=== PATIENT | male | born 1940 | race Caucasian/White ===

== ENCOUNTER → 2017-01-14 | Outpatient (CLI) | payer OTHER ==
[~2017-01-14] MED LIST: AMLO10CA PO; CRD2 PO
[2017-01-14 12:51] LABS: BASO % 0.3 %; BASO ABS # 0.02 K/uL (0-0.2); COMPLETE YES; EOS % 4.3 %; HEMATOCRIT 45.3 % (42-52); IG% 0.2 %; LYMPH % 24.7 %; LYMPH ABS # 1.44 K/uL (1.2-3.4); MEAN CELL VOLUME 89.7 fL (80-100); MEAN CORPUSCULAR HEMOGLOBIN 29.9 pg (25-34); MEAN CORPUSCULAR HGB CONC 33.3 g/dl (32-36); MEAN PLATELET VOLUME 11.4 fL (7.4-10.4); MONO % 12.2 %; NEUT % 58.3 %; PLATELET COUNT 219 K/uL (130-400); RED BLOOD COUNT 5.05 M/uL (4.7-6.1); WHITE BLOOD COUNT 5.82 K/uL (4.8-10.8)
[2017-01-14 13:16] LABS: ESTIMATED AVERAGE GLUCOSE 117 mg/dl; HA1C FLAG Normal (Normal)
[2017-01-14 13:59] LABS: ALB/GLOB RATIO 1.2 (0.9-2); ALKALINE PHOSPHATASE 71 U/L (45-117); ALT/SGPT 31 U/L (12-78); AST/SGOT 20 U/L (15-37); BLOOD UREA NITROGEN 25 mg/dl (7-18); BUN/CREATININE RATIO 23.1 (10-20); CALCIUM 8.4 mg/dl (8.5-10.1); CARBON DIOXIDE 29 mmol/L (21-32); CHLORIDE 108 mmol/L (98-107); CHOLESTEROL 154 mg/dl (0-200); CHOLESTEROL/HDL RATIO 4.1; GLUCOSE 84 mg/dl (70-99); HDL CHOLESTEROL 38 mg/dl; LDL CHOLESTEROL CALCULATED 96 mg/dl; POTASSIUM 3.8 mmol/L (3.5-5.1); SODIUM 141 mmol/L (136-145); TRIGLYCERIDES 100 mg/dl (0-150); VERY LOW DENSITY LIPOPROT CALC 20 mg/dl
== END | disposition home or self-care (01) ==
LOC: C.LABPBG 07:42
PROVIDERS: ATTEND Family Medicine
DX: Z00.00 Encounter for general adult medical examination without abnormal findings (principal); I25.10 Atherosclerotic heart disease of native coronary artery without angina pectoris; E78.5 Hyperlipidemia, unspecified; I10 Essential (primary) hypertension; R73.03 Prediabetes

== ENCOUNTER → 2017-09-14 | Outpatient (CLI) | payer OTHER ==
[2017-09-14 13:55] LABS: HEMOGLOBIN 15.9 g/dL (14.0-18.0); MEAN CELL VOLUME 88.3 fL (80-100); MEAN CORPUSCULAR HEMOGLOBIN 30.5 pg (25-34); MEAN CORPUSCULAR HGB CONC 34.6 g/dl (32-36); MEAN PLATELET VOLUME 10.5 fL (7.4-10.4); PLATELET COUNT 210 K/uL (130-400); RED CELL DISTRIBUTION WIDTH CV 14.7 % (11.5-14.5); RED CELL DISTRIBUTION WIDTH SD 47.5 fL (36.4-46.3); WHITE BLOOD COUNT 6.07 K/uL (4.8-10.8)
[2017-09-14 14:25] LABS: HEMOGLOBIN A1C 5.7 % (4.5-5.6)
[2017-09-14 14:36] LABS: ALBUMIN 3.7 gm/dl (3.4-5.0); ALT/SGPT 27 U/L (12-78); AST/SGOT 17 U/L (15-37); BLOOD UREA NITROGEN 19 mg/dl (7-18); CALCIUM 8.6 mg/dl (8.5-10.1); CARBON DIOXIDE 28 mmol/L (21-32); CHOLESTEROL 125 mg/dl (0-200); CREATININE 1.03 mg/dl (0.60-1.40); GLUCOSE 86 mg/dl (70-99); POTASSIUM 3.6 mmol/L (3.5-5.1); SODIUM 140 mmol/L (136-145)
[2017-09-14 14:39] LABS: ALKALINE PHOSPHATASE 69 U/L (45-117); LDL CHOLESTEROL CALCULATED 66 mg/dl; TOTAL PROTEIN 6.7 gm/dl (6.4-8.2)
== END | disposition home or self-care (01) ==
LOC: C.LABPBG 07:31
PROVIDERS: ATTEND Family Medicine
DX: I25.10 Atherosclerotic heart disease of native coronary artery without angina pectoris (principal); E78.5 Hyperlipidemia, unspecified; I10 Essential (primary) hypertension; R73.03 Prediabetes

== ENCOUNTER 2024-12-31 19:22 | Inpatient (IN) ==
[2024-12-31 19:55] LABS: Hematocrit (blood only) 46.9 % (42.0-52.0); Hemoglobin 15.8 g/dl (14.0-18.0); Immature Granulocytes # (auto) 0.01 K/uL (0.01-0.20); Immature Granulocytes % (auto) 0.1 %; Mean Corpuscular Hemoglobin 29.7 pg (25.0-34.0); Mean Corpuscular Volume 88.2 fL (80.0-100.0); Platelet Count 234 K/uL (130-400); RDW Standard Deviation 48.0 fL (36.4-46.3); Red Blood Count 5.32 M/uL (4.70-6.10); White Blood Count 7.29 K/ul (4.8-10.8)
--- NOTE | 2024-12-31 20:00 | XRay Report ---
EXAM: X-ray chest one-view portable CLINICAL HISTORY: Altered mental status PRIORS: None TECHNIQUE: Direct AP chest FINDINGS: The chest lung volumes are moderately diminished. Allowing for this, subtle heterogeneous opacification in the left lower lobe is noted. No confluent airspace consolidation, effusion or congestive changes. Heart size is normal. No pneumothorax. Trachea is patent. Osseous structures demonstrate no acute abnormality. No radiopaque foreign body. IMPRESSION: Allowing for diminished lung volumes, subtle left lower lobe opacification is present, which could suggest pneumonia in the setting of altered mental status. ACT 112: Positive. There are findings on this examination that require communication between the performing entity and the patient following Patient Test Result Information Act ([place] ACT 112) guidelines. Electronically signed by Sharon Hanna 12-31-2024 7:56 PM
[2024-12-31 20:11] LABS: Base Excess VBG 7.2 mEq/L; HCO3 VBG 33 mmol/L; Oxygen Saturation VBG < 60.0 %; PCO2 VBG 50 mmHg (38-50); PO2 VBG 23 mmHg; pH VBG 7.43 (7.36-7.41)
[2024-12-31 20:13] LABS: Alanine Aminotransferase 20 U/L (7-52); Alkaline Phosphatase 91 U/L (34-104); Anion Gap 8 (3-11); Bilirubin,Total 0.5 mg/dl (0.2-1.0); Blood Urea Nitrogen 17 mg/dl (6-23); Calcium 9.6 mg/dl (8.6-10.3); Carbon Dioxide 28 mmol/L (21-32); Chloride 103 mmol/L (98-107); Creatine Kinase 176 U/L (30-223); Glucose 114 mg/dl (70-99(Fasting)); Lipase 30 U/L (11-82); Magnesium 2.3 mg/dl (1.7-2.4); Potassium 3.4 mmol/L (3.5-5.1); Sodium 139 mmol/L (136-145); Total Protein 7.2 gm/dl (6.0-8.3)
[2024-12-31] MEDS: SODIUM CHLORIDE 0.9% 500 ML IV ONE (20:15)
[2024-12-31 20:26] LABS: INR 0.9 (0.9-1.1); Partial Thromboplastin Time 24 Seconds (21-31); Prothrombin Time 10.2 Seconds (9.0-12.0)
[2024-12-31 20:27] LABS: Appearance Urine Clear (Clear); Glucose Urine UA Negative (Negative)
[2024-12-31] MEDS: cefTRIAXone SODIUM 2,000 MG/50 ML BAG IV STA (20:52)
--- NOTE | 2024-12-31 21:03 | CT Scan Report ---
Exam(s): CT HEAD Without Contrast EXAM: CT Head Without Intravenous Contrast CLINICAL HISTORY: Reason for exam: ams. TECHNIQUE: Axial computed tomography images of the head/brain without intravenous contrast. CTDI is 37.12 mGy and DLP is 624.41 mGy-cm. Automated exposure control was utilized for the study. A dose lowering technique was utilized adhering to the principles of ALARA. COMPARISON: 05/28/2008 FINDINGS: Brain: Mild cerebral atrophy and patchy periventricular white matter low density consistent with chronic small vessel disease and/or senescent changes. There are old lacunar infarcts in the basal ganglia bilaterally. No acute large vessel infarct or intracranial hemorrhage is seen. Ventricles: Unremarkable. No ventriculomegaly. Bones/joints: Old right frontal natasha hole, unchanged. No acute fracture. Soft tissues: Unremarkable. Sinuses: Unremarkable as visualized. No acute sinusitis. Mastoid air cells: Unremarkable as visualized. No mastoid effusion. IMPRESSION: Mild cerebral atrophy and patchy periventricular white matter low density consistent with chronic small vessel disease and/or senescent changes. There are old lacunar infarcts in the basal ganglia bilaterally. No acute large vessel infarct or intracranial hemorrhage is seen. Electronically signed by: Tony Haynes MD 12/31/24 21:02 PM
--- NOTE | 2024-12-31 21:36 | History & Physical Report ---
Date of Service December 31, 2024 Assessment & Plan (1) Presence of bare metal stent in left circumflex coronary artery: (2) Coronary artery disease: (3) History of subdural hematoma: (4) Hypertension: (5) Dyslipidemia: (6) Acute metabolic encephalopathy: (7) Acute hypoxemic respiratory failure: (8) CAP (community acquired pneumonia): Plan This is an 84 year old male with a PMH of CAD s/p stenting, HTN, HLD, hx of subdural hematoma - coming in with altered mental status and weakness. Acute Metabolic Encephalopathy Acute Hypoxemic Respiratory Failure Community Acquired Pneumonia - patient coming in with confusion, weakness. On arrival here, oriented x3, but intermittently confused and weak - saturating <88%on room air, requiring 2L of O2 - CXR done and suggestive of left lower lobe opacification - Rocephin + Azithromycin started in the ED and will continue - gentle IV hydration CAD - hx of stenting x2 in 2007 - cont Plavix + statin HTN - cont amlodipine - cont triamterene/HCTZ DVT ppx - subq Lovenox History of Present Illness Chief Complaint: Confusion Primary Care Provider: Yani Flores, This is an 84 year old male with a PMH of CAD s/p stenting, HTN, HLD, hx of subdural hematoma - coming in with altered mental status and weakness. This began suddenly prior to arrival; states he was just not feeling right. On arrival here, he is not confused per orientation questions, but just felt off and weak. Head CT was done in the ED and negative for acute process. CXR was done and suggestive of left lower lobe opacification. In the ER, patient requiring 2L of O2 via NC due to hypoxemia. Patient was started on Rocephin and Azithromycin in the ER. Allergies Allergy/AdvReac Type Severity Reaction Status Date / Time spironolactone Allergy Unknown Unknown Verified 12/31/24 20:24 JENNY Inhibitors AdvReac Intermediate Cough Verified 12/31/24 20:24 atorvastatin AdvReac Intermediate Myalgia Verified 12/31/24 20:24 rosuvastatin [From Crestor] AdvReac Intermediate Myalgia Verified 12/31/24 20:24 Home Medications Medication Instructions Recorded Confirmed Type compressor, for nebulizer #1 ea 08/27/22 11/10/24 Rx albuterol sulfate 1.25 mg/3 mL 1.25 mg (3 mL) inhalation QID PRN 09/15/22 12/31/24 Rx solution for nebulization shortness of breath or wheezing #75 mL acetaminophen 500 mg tablet 500 mg PO DIRECTED PRN Pain 09/28/22 12/31/24 History (Tylenol Extra Strength) albuterol sulfate 90 mcg/actuation 2 puff inhalation Q6H PRN 03/18/23 12/31/24 Rx aerosol inhaler shortness of breath or wheezing #8.5 grams fluticasone propionate 50 2 spray intranasal DAILY PRN nasal 06/03/23 12/31/24 Rx mcg/actuation nasal congestion #16 grams spray,suspension clopidogrel 75 mg tablet 75 mg PO DAILY #90 tabs 12/27/23 12/31/24 Rx simvastatin 40 mg tablet 40 mg PO QPM #90 tabs 03/28/24 12/31/24 Rx fluticasone fur. 200 mcg-umeclid 1 inh inhalation DAILY PRN cough 08/08/24 12/31/24 Rx 62.5 mcg-vilant 25 mcg and wheezing #60 ea inhalat.powder (Trelegy Ellipta) sildenafil 100 mg tablet 100 mg PO DAILY PRN sexual 09/29/24 12/31/24 Rx activity #10 tabs amlodipine 10 mg tablet 10 mg PO QAM #90 tabs 10/04/24 12/31/24 Rx losartan 100 mg tablet 100 mg PO QAM #90 tabs 10/04/24 12/31/24 Rx metoprolol tartrate 25 mg tablet 12.5 mg (1/2 x 25 mg) PO QAM #45 10/04/24 12/31/24 Rx tabs triamterene 37.5 1 cap PO QAM #90 caps 10/04/24 12/31/24 Rx mg-hydrochlorothiazide 25 mg capsule potassium chloride 20 mEq 20 meq PO QAM #90 tabs 11/08/24 12/31/24 Rx tablet,extended release fluorouracil 5 % topical cream 1 applic topical DIRECTED PRN 11/10/24 12/31/24 History Skin Irritation Past Med/Surg History Problem List (Updated 12/31/24 @ 22:09 by Payal Gallardo DO) CAP (community acquired pneumonia) Acute hypoxemic respiratory failure Acute metabolic encephalopathy Squamous cell skin cancer, face Venous reflux Presence of bare metal stent in left circumflex coronary artery Antiplatelet or antithrombotic long-term use Left hydrocele Allergic rhinitis Coronary artery disease s/p BMS x2 (2007), Follows with Dr. Rodriguez Cyst of kidney, acquired Dyslipidemia History of subdural hematoma 2006 s/p natasha holes/drainage Hypertension Inhibited sexual excitement Prediabetes Myocardial infarct, old 2007 Medical History Bronchospasm Surgical History H/O right inguinal hernia repair (03/19/22) History of hydrocelectomy (05/06/21) S/P left inguinal hernia repair (05/06/21) History of colonoscopy S/P coronary artery stent placement History of natasha hole surgery S/P hernia repair S/P cataract surgery S/P appendectomy Family History Brother Coronary heart disease Prostate cancer Stroke Hypertension Mother Coronary heart disease Hypertension Father Coronary heart disease Diabetes Hypertension Brother Prostate cancer Hypertension Brother Stomach cancer Denies family history of Ovarian cancer Myocardial infarction Breast cancer Lung cancer Colorectal cancer Social History Smoking Status: Never smoker Second Hand Exposure: No; Do You Dip or Chew Tobacco: No; Hx Alcohol Use: Yes Alcohol type: beer Alcohol Intake Frequency: Monthly or Less Hx Substance Use: No Preferred Language: German Communication Ability: Effective Visual Impairment: No Limitations Hearing Ability: Normal Operations Executive Required: No Beliefs That Will Affect Care: None marital status: Current Living Situation: Spouse current occupational status: retired How many Children do You have: 4 Feels Safe at Home: Yes Childhood Exposure to Second-Hand Smoke: No Diet: regular Diet Comment: Regular caffeine: Yes (coffee) during the past year weight has: remained stable Dental Care, Regularly: Yes Physical Activity Frequency: Daily Physical Activity Frequency Comment: walking Seatbelt Use: always Sunscreen Use: Yes Assistive Devices: None Review of Systems Review of Systems: Constitutional: No Weight Change, No Fever, No Chills, No Night Sweats, No Fatigue, No Malaise ENT/Mouth: No Hearing Changes, No Ear Pain, No Nasal Congestion, No Sinus Pain, No Hoarseness, No sore throat, No Rhinorrhea, No Swallowing Difficulty Eyes: No Eye Pain, No Swelling, No Redness, No Foreign Body, No Discharge, No Vision Changes Cardiovascular: No Chest Pain, No SOB, No PND, No Dyspnea on Exertion, No Orthopnea, No Claudication, No Edema, No Palpitations Respiratory: No Cough, No Sputum, No Wheezing, No Smoke Exposure, No Dyspnea Gastrointestinal: No Nausea, No Vomiting, No Diarrhea, No Constipation, No Pain, No Heartburn, No Anorexia, No Dysphagia, No Hematochezia, No Melena, No Flatulence, No Jaundice Genitourinary: No Dysmenorrhea, No DUB, No Dyspareunia, No Dysuria, No Urinary Frequency, No Hematuria, No Urinary Incontinence, No Urgency, No Flank Pain, No Urinary Flow Changes, No Hesitancy Musculoskeletal: No Arthralgias, No Myalgias, No Joint Swelling, No Joint Stiffness, No Back Pain, No Neck Pain, No Injury History Skin: No Skin Lesions, No Pruritis, No Hair Changes, No Breast/Skin Changes, No Nipple Discharge Neuro: +weakness No Numbness, No Paresthesias, No Loss of Consciousness, No Syncope, No Dizziness, No Headache, No Coordination Changes, No Recent Falls . +intermittent confusion Psych: No Anxiety/Panic, No Depression, No Insomnia, No Personality Changes, No Delusions, No Rumination, No SI/HI/AH/VH, No Social Issues, No Memory Changes, No Violence/Abuse Hx., No Eating Concerns Heme/Lymph: No Bruising, No Bleeding, No Transfusions History, No Lymphadenopathy Endocrine: No Polyuria, No Polydipsia, No Temperature Intolerance Physical Exam Physical Exam: VITALS: Reviewed. WEIGHT/BMI reviewed. GEN: Healthy appearing, well-developed, NAD. PSYCH: Good Judgment. AOx3. Normal memory, mood, and affect. HEENT -Head: NC/AT; -Eyes: PERRL, EOMI. No discharge or redn ess; -Ears: External ears are normal. Normal TMs. -Nose: Normal nares. -Mouth and throat: MMM. Normal gums, muc sixto, palate,. Good dentition. NECK: Supple, with no masses. CV: RRR, no m/r/g. LUNGS: CTAB, no w/r/c. ABD: Soft, NT/ND, NBS, no masses or organomegaly. : N/A SKIN: Warm, well perfused. No skin rashes or abnormal lesions. MSK: No deformities, Normal gait. EXT: No clubbing, cyanosis, or edema. NEURO: Ambulating with no limitations. Normal muscle strength and tone. No focal deficits. Results & Data Results & Data Vital Signs (Past 12 Hours) Vital Signs Temp Pulse Pulse Resp BP BP BP 12/31/24 20:55 52 L 19 162/82 H 12/31/24 20:20 12/31/24 19:49 49 L 16 173/85 H 12/31/24 19:48 12/31/24 19:40 51 L 12/31/24 19:29 36.6 C 47 L 16 175/81 H Pulse Ox O2 Del Method O2 Flow Rate 12/31/24 20:55 93 Nasal Cannula 2 12/31/24 20:20 89 L Nasal Cannula 0 12/31/24 19:49 92 Room Air 12/31/24 19:48 92 Room Air 12/31/24 19:40 12/31/24 19:29 94 Room Air Laboratory Results 12/31/24 20:49 Aerobic Blood Culture - Pending Blood Anaerobic Blood Culture - Pending 12/31/24 20:35 Aerobic Blood Culture - Pending Blood Anaerobic Blood Culture - Pending 12/31/24 12/31/24 12/31/24 20:15 19:53 19:42 WBC RBC Hgb Hct MCV MCH MCHC RDW Std Deviation RDW Coeff of Klaus Plt Count MPV Immature Gran % (Auto) Neut % (Auto) Lymph % (Auto) [place] % (Auto) Eos % (Auto) Baso % (Auto) Neut # (Auto) Lymph # (Auto) [place] # (Auto) Eos # (Auto) Baso # (Auto) Immature Gran # (Auto) PT INR APTT PTT Ratio VBG pH 7.43 H VBG pCO2 50 VBG pO2 23 VBG HCO3 33 VBG O2 Saturation < 60.0 VBG Base Excess 7.2 Carboxyhemoglobin 1.1 Sodium Potassium Chloride Carbon Dioxide Anion Gap BUN Creatinine Est Cr Clr Drug Dosing eGFR BUN/Creatinine Ratio Glucose POC Glucose 111 H Calcium Magnesium Total Bilirubin Direct Bilirubin AST ALT Alkaline Phosphatase Ammonia 32.0 Total Creatine Kinase Total Protein Albumin Lipase Urine Color Yellow Urine Appearance Clear Urine pH 6.0 Ur Specific [place] 1.014 Urine Protein Negative Urine Glucose (UA) Negative Urine Ketones Negative Urine Blood Negative Urine Nitrite Negative Urine Bilirubin Negative Urine Urobilinogen Negative Ur Leukocyte Esterase Negative Urine Comment Ethyl Alcohol mg/dL < 10.0 12/31/24 19:40 WBC 7.29 RBC 5.32 Hgb 15.8 Hct 46.9 MCV 88.2 MCH 29.7 MCHC 33.7 RDW Std Deviation 48.0 H RDW Coeff of Klaus 14.9 H Plt Count 234 MPV 10.1 Immature Gran % (Auto) 0.1 Neut % (Auto) 73.3 Lymph % (Auto) 12.1 [place] % (Auto) 11.1 Eos % (Auto) 3.0 Baso % (Auto) 0.4 Neut # (Auto) 5.34 Lymph # (Auto) 0.88 L [place] # (Auto) 0.81 H Eos # (Auto) 0.22 Baso # (Auto) 0.03 Immature Gran # (Auto) 0.01 PT 10.2 INR 0.9 APTT 24 PTT Ratio 0.9 VBG pH VBG pCO2 VBG pO2 VBG HCO3 VBG O2 Saturation VBG Base Excess Carboxyhemoglobin Sodium 139 Potassium 3.4 L Chloride 103 Carbon Dioxide 28 Anion Gap 8 BUN 17 Creatinine 1.03 Est Cr Clr Drug Dosing Not Reportable eGFR 71.19 BUN/Creatinine Ratio 16.5 Glucose 114 H POC Glucose Calcium 9.6 Magnesium 2.3 Total Bilirubin 0.5 Direct Bilirubin 0.1 AST 20 ALT 20 Alkaline Phosphatase 91 Ammonia Total Creatine Kinase 176 Total Protein 7.2 Albumin 4.2 Lipase 30 Urine Color Urine Appearance Urine pH Ur Specific [place] Urine Protein Urine Glucose (UA) Urine Ketones Urine Blood Urine Nitrite Urine Bilirubin Urine Urobilinogen Ur Leukocyte Esterase Urine Comment Ethyl Alcohol mg/dL Diagnostic Findings Head CT 12/31/24 19:42 Exam(s): CT HEAD Without Contrast EXAM: CT Head Without Intravenous Contrast CLINICAL HISTORY: Reason for exam: ams. TECHNIQUE: Axial computed tomography images of the head/brain without intravenous contrast. CTDI is 37.12 mGy and DLP is 624.41 mGy-cm. Automated exposure control was utilized for the study. A dose lowering technique was utilized adhering to the principles of ALARA. COMPARISON: 05/28/2008 FINDINGS: Brain: Mild cerebral atrophy and patchy periventricular white matter low density consistent with chronic small vessel disease and/or senescent changes. There are old lacunar infarcts in the basal ganglia bilaterally. No acute large vessel infarct or intracranial hemorrhage is seen. Ventricles: Unremarkable. No ventriculomegaly. Bones/joints: Old right frontal natasha hole, unchanged. No acute fracture. Soft tissues: Unremarkable. Sinuses: Unremarkable as visualized. No acute sinusitis. Mastoid air cells: Unremarkable as visualized. No mastoid effusion. IMPRESSION: Mild cerebral atrophy and patchy periventricular white matter low density consistent with chronic small vessel disease and/or senescent changes. There are old lacunar infarcts in the basal ganglia bilaterally. No acute large vessel infarct or intracranial hemorrhage is seen. Electronically signed by: Tony Haynes MD 12/31/24 21:02 PM Chest X-Ray 12/31/24 19:43 EXAM: X-ray chest one-view portable CLINICAL HISTORY: Altered mental status PRIORS: None TECHNIQUE: Direct AP chest FINDINGS: The chest lung volumes are moderately diminished. Allowing for this, subtle heterogeneous opacification in the left lower lobe is noted. No confluent airspace consolidation, effusion or congestive changes. Heart size is normal. No pneumothorax. Trachea is patent. Osseous structures demonstrate no acute abnormality. No radiopaque foreign body. IMPRESSION: Allowing for diminished lung volumes, subtle left lower lobe opacification is present, which could suggest pneumonia in the setting of altered mental status. ACT 112: Positive. There are findings on this examination that require communication between the performing entity and the patient following Patient Test Result Information Act ([place] ACT 112) guidelines. Electronically signed by Sharon Hanna 12-31-2024 7:56 PM Code Status & VTE Plan VTE Prophylaxis Plan VTE Prophylaxis will be ordered: Yes PG Care Time/CCT Total # of Minutes Spent Total Time Spent with Patient: Total time spent is greater than 50% in coordination of care (as documented) at patient's floor/unit and/or counseling patient: Coding Level of Care Code 72137 INT INP/OBS CARE 3/75MIN Diagnoses Presence of bare metal stent in left circumflex coronary artery Z95.5 Coronary artery disease I25.10 History of subdural hematoma Z86.79 Hypertension I10 Dyslipidemia E78.5 Acute metabolic encephalopathy G93.41 Acute hypoxemic respiratory failure J96.01 CAP (community acquired pneumonia) J18.9
[2024-12-31] MEDS: AZITHROMYCIN 500 MG/255 ML BAG IV ONE (21:56)
[2024-12-31] MEDS ORDERED: POLYETHYLENE (MIRALAX) 17 GM PACK PO PRN (22:21)
[2024-12-31] MEDS ORDERED: MELATONIN 3 MG TAB PO PRN (22:21)
[2024-12-31] MEDS ORDERED: ACETAMINOPHEN 325 MG TAB PO PRN (22:21)
[2024-12-31] MEDS ORDERED: ALUMINUM/MAGNESIUM SUSP 30 ML UDC PO PRN (22:21)
[2024-12-31] MEDS ORDERED: MAGNESIUM HYDROXIDE SUSP 30 ML UDC PO PRN (22:21)
[2024-12-31] MEDS ORDERED: ALBUTEROL 0.083% NEBU SOLN 3 ML VIAL INH PRN (22:27)
--- NOTE | 2024-12-31 22:29 | Emergency Department Note ---
History of Present Illness General Chief complaint: Weakness Stated complaint: WEAK,CONFUSED Time Seen by Provider: 12/31/24 19:32 History of Present Illness Provider complaint: Weakness confusion 84-year-old male presents emergency department for weakness and confusion. at bedside reports that the patient's symptoms began 1 hour ago. He started having headache and nausea also. Patient reports he was outside for a large majority of the day today. Patient denies any cough chest pain abdominal pain or shortness of breath. reports that the patient has a history of a spontaneous subdural bleed. Home Medications Medication Instructions Recorded Confirmed Type compressor, for nebulizer #1 ea 08/27/22 11/10/24 Rx albuterol sulfate 1.25 mg/3 mL 1.25 mg (3 mL) inhalation QID PRN 09/15/22 12/31/24 Rx solution for nebulization shortness of breath or wheezing #75 mL acetaminophen 500 mg tablet 500 mg PO DIRECTED PRN Pain 09/28/22 12/31/24 History (Tylenol Extra Strength) albuterol sulfate 90 mcg/actuation 2 puff inhalation Q6H PRN 03/18/23 12/31/24 Rx aerosol inhaler shortness of breath or wheezing #8.5 grams fluticasone propionate 50 2 spray intranasal DAILY PRN nasal 06/03/23 12/31/24 Rx mcg/actuation nasal congestion #16 grams spray,suspension clopidogrel 75 mg tablet 75 mg PO DAILY #90 tabs 12/27/23 12/31/24 Rx simvastatin 40 mg tablet 40 mg PO QPM #90 tabs 03/28/24 12/31/24 Rx fluticasone fur. 200 mcg-umeclid 1 inh inhalation DAILY PRN cough 08/08/24 12/31/24 Rx 62.5 mcg-vilant 25 mcg and wheezing #60 ea inhalat.powder (Trelegy Ellipta) sildenafil 100 mg tablet 100 mg PO DAILY PRN sexual 09/29/24 12/31/24 Rx activity #10 tabs amlodipine 10 mg tablet 10 mg PO QAM #90 tabs 10/04/24 12/31/24 Rx losartan 100 mg tablet 100 mg PO QAM #90 tabs 10/04/24 12/31/24 Rx metoprolol tartrate 25 mg tablet 12.5 mg (1/2 x 25 mg) PO QAM #45 10/04/24 12/31/24 Rx tabs triamterene 37.5 1 cap PO QAM #90 caps 10/04/24 12/31/24 Rx mg-hydrochlorothiazide 25 mg capsule potassium chloride 20 mEq 20 meq PO QAM #90 tabs 11/08/24 12/31/24 Rx tablet,extended release fluorouracil 5 % topical cream 1 applic topical DIRECTED PRN 11/10/24 12/31/24 History Skin Irritation Allergies Allergy/AdvReac Type Severity Reaction Status Date / Time spironolactone Allergy Unknown Unknown Verified 12/31/24 20:24 JENNY Inhibitors AdvReac Intermediate Cough Verified 12/31/24 20:24 atorvastatin AdvReac Intermediate Myalgia Verified 12/31/24 20:24 rosuvastatin [From Crestor] AdvReac Intermediate Myalgia Verified 12/31/24 20:24 Past Med/Surg History Problem List (Updated 12/31/24 @ 22:38 by Galdino Gordon MD) Pneumonia (Acute) Hypoxia (Acute) CAP (community acquired pneumonia) Acute hypoxemic respiratory failure Acute metabolic encephalopathy Squamous cell skin cancer, face Venous reflux Presence of bare metal stent in left circumflex coronary artery Antiplatelet or antithrombotic long-term use Left hydrocele Allergic rhinitis Coronary artery disease s/p BMS x2 (2007), Follows with Dr. Rodriguez Cyst of kidney, acquired Dyslipidemia History of subdural hematoma 2006 s/p natasha holes/drainage Hypertension Inhibited sexual excitement Prediabetes Myocardial infarct, old 2007 Medical History Bronchospasm Surgical History H/O right inguinal hernia repair (03/19/22) Direct Hernia Repair with Mesh, Lipoma of Cord(Right) - Dion García MD, FACS History of hydrocelectomy (05/06/21) Open Direct and Indirect Left Inguinal Hernia Repair with Mesh, Removal of Lipoma of Cord, Left Hydrocelectomy(Left) - Dion García MD, FACS 05/07/2021 S/P left inguinal hernia repair (05/06/21) Open Direct and Indirect Left Inguinal Hernia Repair with Mesh, Removal of Lipoma of Cord, Left Hydrocelectomy(Left) - Dion García MD, FACS 05/06/2021 History of colonoscopy 2009 S/P coronary artery stent placement BMS x2 (2007) History of natasha hole surgery 2007 S/P hernia repair right inguinal hernia S/P cataract surgery R/L S/P appendectomy Family History Brother Coronary heart disease Prostate cancer Stroke Hypertension Mother Coronary heart disease Hypertension Father Coronary heart disease Diabetes Hypertension Brother Prostate cancer Hypertension Brother Stomach cancer Denies family history of Ovarian cancer Myocardial infarction Breast cancer Lung cancer Colorectal cancer Social History Smoking Status: Never smoker Second Hand Exposure: No; Do You Dip or Chew Tobacco: No; Hx Alcohol Use: Yes Alcohol type: beer Alcohol Intake Frequency: Monthly or Less Hx Substance Use: No Preferred Language: Telugu Communication Ability: Effective Visual Impairment: No Limitations Hearing Ability: Normal [employer] Required: No Beliefs That Will Affect Care: None marital status: Current Living Situation: Spouse current occupational status: retired How many Children do You have: 4 Feels Safe at Home: Yes Childhood Exposure to Second-Hand Smoke: No Diet: regular Diet Comment: Regular caffeine: Yes (coffee) during the past year weight has: remained stable Dental Care, Regularly: Yes Physical Activity Frequency: Daily Physical Activity Frequency Comment: walking Seatbelt Use: always Sunscreen Use: Yes Assistive Devices: None Physical Exam Vital Signs Vital Signs - 24 hr 12/31/24 19:29 12/31/24 19:40 12/31/24 19:48 Temperature 36.6 C Temperature Source Temporal Artery Scan Pulse Rate 47 L 51 L Pulse Rate [Apical] Respiratory Rate 16 Respiratory Effort / Characteristics Non-Labored Spontaneous Respiratory Depth Normal Respiratory Pattern Regular Blood Pressure 175/81 H Blood Pressure [Left Radial Artery] Blood Pressure [Right Arm] Blood Pressure Mean 112 Blood Pressure Mean [Left Radial Artery] Blood Pressure Mean [Right Arm] Blood Pressure Position [Left Radial Artery] Blood Pressure Position [Right Arm] Pulse Oximetry 94 92 Oxygen Delivery Method Room Air Room Air Oxygen Flow Rate Sepsis Recent Fever Within 48 Hours No Sepsis New/Unexplained Change in Mental Status N/A Sepsis Action Taken by Nursing No Action Required Oxygen Flow Rate - Titration Fraction of Inspired Oxygen - Titration 12/31/24 19:49 12/31/24 20:20 08/03/25 20:55 Temperature Temperature Source Pulse Rate Pulse Rate [Apical] 49 L 52 L Respiratory Rate 16 19 Respiratory Effort / Characteristics Non-Labored Spontaneous Non-Labored Spontaneous Respiratory Depth Normal Normal Respiratory Pattern Regular Regular Blood Pressure Blood Pressure [Left Radial Artery] 173/85 H Blood Pressure [Right Arm] 162/82 H Blood Pressure Mean Blood Pressure Mean [Left Radial Artery] 114 Blood Pressure Mean [Right Arm] 108 Blood Pressure Position [Left Radial Artery] Semi-fowlers Blood Pressure Position [Right Arm] Semi-fowlers Pulse Oximetry 92 89 L 93 Oxygen Delivery Method Room Air Nasal Cannula Nasal Cannula Oxygen Flow Rate 0 2 Sepsis Recent Fever Within 48 Hours Sepsis New/Unexplained Change in Mental Status Sepsis Action Taken by Nursing Oxygen Flow Rate - Titration 1 Fraction of Inspired Oxygen - Titration 94 Physical Exam GENERAL: He is oriented to person, place, and time. He appears well-developed and well-nourished. He does not appear distressed. HENT: Exam performed. - Head: Normocephalic and atraumatic. - Right Ear: External ear normal. No mastoid erythema - Left Ear: External ear normal. No mastoid erythema - Mouth/Throat: The oropharynx is clear and moist. No trismus in the jaw. No dental abscesses or uvula swelling. No oropharyngeal exudate or tonsillar abscesses. EYES: Conjunctivae and EOM are normal. Pupils are equal, round, and reactive to light. Right eye exhibits no discharge. Left eye exhibits no discharge. No scleral icterus. NECK: Normal range of motion. Neck supple. No JVD present. CV: Normal rate, regular rhythm, normal heart sounds and intact distal pulses. There is no peripheral edema. Palpable radial pulses bue. PULM/CHEST: Rhonchi bilaterally. ABD: The abdomen is soft.There is no tenderness. There is no rebound, no guarding. MUSC/SKEL: Normal range of motion. There is no peripheral edema, tenderness or deformity. NEURO: He is alert and oriented to person, place, and time. He has normal strength. No cranial nerve deficit or sensory deficit. Coordination and gait normal. GCS eye subscore is 4. GCS verbal subscore is 5. GCS motor subscore is 6. Cerebellar tests wnl. SKIN: Skin is warm and dry. He is not diaphoretic. PSYCH: He has a normal mood and affect. Behavior is normal. Judgment and thought content normal. Course Course 1931: The patient was evaluated in room A2. A complete history and physical exam was performed Cardiac monitoring: An order was placed for continuous cardiac monitoring. The monitor shows a rate of 60 with sinus rhythm interpreted by me 2021: Patient came hypoxic when ambulating to the bathroom. Patient placed on supplemental oxygen via nasal cannula which improved the patient's oxygen saturation. 2104: Vital signs stable on supplemental oxygen via nasal cannula. CT of the head shows no ICH. CT of the head was conducted within 6-hour of symptom onset effectively ruling out SAH. Chest x-ray shows left lower lobe pneumonia. Patient will be treated with antibiotics for commune acquired pneumonia azithromycin and Rocephin. [facility]. Administered Medications Sodium Chloride (Nss) 500 mls @ 80 mls/hr IV .[id number] HARSHAD Stop: 01/01/25 04:44 Last Admin: 12/31/24 22:31 Dose: 80 mls/hr Documented By: KARLA Discontinued Medications Sodium Chloride (Nss) 500 mls @ 999 mls/hr IV .Q31M ONE Stop: 12/31/24 20:13 Last Infusion: 12/31/24 20:49 Dose: Infused Documented By: Admin: 12/31/24 20:15 Dose: 999 mls/hr Documented By: RONALD Ceftriaxone Sodium (Rocephin) 2,000 mg in 50 mls @ 100 mls/hr IV NOW STA Stop: 12/31/24 21:01 Last Infusion: 12/31/24 21:22 Dose: Infused Documented By: Admin: 12/31/24 20:52 Dose: 100 mls/hr Documented By: RONALD Azithromycin (Zithromax) 500 mg in 255 mls @ 127.5 mls/hr IV NOW ONE Stop: 12/31/24 22:31 Last Admin: 12/31/24 21:56 Dose: 127.5 mls/hr Documented By: RONALD Miscellaneous (Patient's Height &/Or Weight Needed) 1 each N/A NOW STA Stop: 12/31/24 22:29 Last Admin: 12/31/24 22:31 Dose: 1 each Documented By: KARLA Critical Care Time Critical Care Time: Yes Total Critical Care Time: 58 I have personally spent greater than 58 minutes of critical care time in the direct management of this patient. This includes bedside care, interpretation of diagnostic studies, and testing, discussion with consultants, patient, and family members, and other required patient management activities. This 58 minutes is in excess of all separately billable procedures. Medical Decision Making Laboratory Data Attestation: I reviewed the patient's lab results. 12/31/24 19:40 12/31/24 19:40 Lab Results 12/31/24 12/31/24 12/31/24 Range/Units 19:40 19:42 19:53 WBC 7.29 (4.8-10.8) K/ul RBC 5.32 (4.70-6.10) M/uL Hgb 15.8 (14.0-18.0) g/dl Hct 46.9 (42.0-52.0) % MCV 88.2 (80.0-100.0) fL MCH 29.7 (25.0-34.0) pg MCHC 33.7 (32.0-36.0) g/dL RDW Std Deviation 48.0 H (36.4-46.3) fL RDW Coeff of Klaus 14.9 H (11.5-14.5) % Plt Count 234 (130-400) K/uL MPV 10.1 (9.4-12.4) fL Immature Gran % (Auto) 0.1 % Neut % (Auto) 73.3 % Lymph % (Auto) 12.1 % [place] % (Auto) 11.1 % Eos % (Auto) 3.0 % Baso % (Auto) 0.4 % Neut # (Auto) 5.34 (1.40-6.50) K/uL Lymph # (Auto) 0.88 L (1.20-3.40) K/uL [place] # (Auto) 0.81 H (0.11-0.59) K/uL Eos # (Auto) 0.22 (0.00-0.50) K/uL Baso # (Auto) 0.03 (0.00-0.20) K/uL Immature Gran # (Auto) 0.01 (0.01-0.20) K/uL PT 10.2 (9.0-12.0) Seconds INR 0.9 (0.9-1.1) APTT 24 (21-31) Seconds PTT Ratio 0.9 VBG pH 7.43 H (7.36-7.41) VBG pCO2 50 (38-50) mmHg VBG pO2 23 mmHg VBG HCO3 33 mmol/L VBG O2 Saturation < 60.0 % VBG Base Excess 7.2 mEq/L Carboxyhemoglobin 1.1 % THgb Sodium 139 (136-145) mmol/L Potassium 3.4 L (3.5-5.1) mmol/L Chloride 103 (98-107) mmol/L Carbon Dioxide 28 (21-32) mmol/L Anion Gap 8 (3-11) BUN 17 (6-23) mg/dl Creatinine 1.03 (0.6-1.4) mg/dl Est Cr Clr Drug Dosing Not Reportable eGFR 71.19 BUN/Creatinine Ratio 16.5 (10-20) Glucose 114 H (70-99(Fasting)) mg/dl POC Glucose 111 H (70-99) mg/dl Calcium 9.6 (8.6-10.3) mg/dl Magnesium 2.3 (1.7-2.4) mg/dl Total Bilirubin 0.5 (0.2-1.0) mg/dl Direct Bilirubin 0.1 (0-0.2) mg/dl AST 20 (13-39) U/L ALT 20 (7-52) U/L Alkaline Phosphatase 91 (34-104) U/L Ammonia 32.0 (18-72) umol/L Total Creatine Kinase 176 (30-223) U/L Total Protein 7.2 (6.0-8.3) gm/dl Albumin 4.2 (3.4-5.0) gm/dl Lipase 30 (11-82) U/L Urine Color Urine Appearance (Clear) Urine pH (4.5-7.5) Ur Specific [place] (1.000-1.030) Urine Protein (Negative) Urine Glucose (UA) (Negative) Urine Ketones (Negative) Urine Blood (Negative) Urine Nitrite (Negative) Urine Bilirubin (Negative) Urine Urobilinogen (Negative) Ur Leukocyte Esterase (Negative) Urine Comment Ethyl Alcohol mg/dL < 10.0 (<10.0) mg/dl 12/31/24 Range/Units 20:15 WBC (4.8-10.8) K/ul RBC (4.70-6.10) M/uL Hgb (14.0-18.0) g/dl Hct (42.0-52.0) % MCV (80.0-100.0) fL MCH (25.0-34.0) pg MCHC (32.0-36.0) g/dL RDW Std Deviation (36.4-46.3) fL RDW Coeff of Klaus (11.5-14.5) % Plt Count (130-400) K/uL MPV (9.4-12.4) fL Immature Gran % (Auto) % Neut % (Auto) % Lymph % (Auto) % [place] % (Auto) % Eos % (Auto) % Baso % (Auto) % Neut # (Auto) (1.40-6.50) K/uL Lymph # (Auto) (1.20-3.40) K/uL [place] # (Auto) (0.11-0.59) K/uL Eos # (Auto) (0.00-0.50) K/uL Baso # (Auto) (0.00-0.20) K/uL Immature Gran # (Auto) (0.01-0.20) K/uL PT (9.0-12.0) Seconds INR (0.9-1.1) APTT (21-31) Seconds PTT Ratio VBG pH (7.36-7.41) VBG pCO2 (38-50) mmHg VBG pO2 mmHg VBG HCO3 mmol/L VBG O2 Saturation % VBG Base Excess mEq/L Carboxyhemoglobin % THgb Sodium (136-145) mmol/L Potassium (3.5-5.1) mmol/L Chloride (98-107) mmol/L Carbon Dioxide (21-32) mmol/L Anion Gap (3-11) BUN (6-23) mg/dl Creatinine (0.6-1.4) mg/dl Est Cr Clr Drug Dosing eGFR BUN/Creatinine Ratio (10-20) Glucose (70-99(Fasting)) mg/dl POC Glucose (70-99) mg/dl Calcium (8.6-10.3) mg/dl Magnesium (1.7-2.4) mg/dl Total Bilirubin (0.2-1.0) mg/dl Direct Bilirubin (0-0.2) mg/dl AST (13-39) U/L ALT (7-52) U/L Alkaline Phosphatase (34-104) U/L Ammonia (18-72) umol/L Total Creatine Kinase (30-223) U/L Total Protein (6.0-8.3) gm/dl Albumin (3.4-5.0) gm/dl Lipase (11-82) U/L Urine Color Yellow Urine Appearance Clear (Clear) Urine pH 6.0 (4.5-7.5) Ur Specific [place] 1.014 (1.000-1.030) Urine Protein Negative (Negative) Urine Glucose (UA) Negative (Negative) Urine Ketones Negative (Negative) Urine Blood Negative (Negative) Urine Nitrite Negative (Negative) Urine Bilirubin Negative (Negative) Urine Urobilinogen Negative (Negative) Ur Leukocyte Esterase Negative (Negative) Urine Comment Ethyl Alcohol mg/dL (<10.0) mg/dl Imaging Data Radiologist's Impression: Head CT 12/31/24 19:42 Exam(s): CT HEAD Without Contrast EXAM: CT Head Without Intravenous Contrast CLINICAL HISTORY: Reason for exam: ams. TECHNIQUE: Axial computed tomography images of the head/brain without intravenous contrast. CTDI is 37.12 mGy and DLP is 624.41 mGy-cm. Automated exposure control was utilized for the study. A dose lowering technique was utilized adhering to the principles of ALARA. COMPARISON: 05/28/2008 FINDINGS: Brain: Mild cerebral atrophy and patchy periventricular white matter low density consistent with chronic small vessel disease and/or senescent changes. There are old lacunar infarcts in the basal ganglia bilaterally. No acute large vessel infarct or intracranial hemorrhage is seen. Ventricles: Unremarkable. No ventriculomegaly. Bones/joints: Old right frontal natasha hole, unchanged. No acute fracture. Soft tissues: Unremarkable. Sinuses: Unremarkable as visualized. No acute sinusitis. Mastoid air cells: Unremarkable as visualized. No mastoid effusion. IMPRESSION: Mild cerebral atrophy and patchy periventricular white matter low density consistent with chronic small vessel disease and/or senescent changes. There are old lacunar infarcts in the basal ganglia bilaterally. No acute large vessel infarct or intracranial hemorrhage is seen. Electronically signed by: Tony Haynes MD 12/31/24 21:02 PM Chest X-Ray 12/31/24 19:43 EXAM: X-ray chest one-view portable CLINICAL HISTORY: Altered mental status PRIORS: None TECHNIQUE: Direct AP chest FINDINGS: The chest lung volumes are moderately diminished. Allowing for this, subtle heterogeneous opacification in the left lower lobe is noted. No confluent airspace consolidation, effusion or congestive changes. Heart size is normal. No pneumothorax. Trachea is patent. Osseous structures demonstrate no acute abnormality. No radiopaque foreign body. IMPRESSION: Allowing for diminished lung volumes, subtle left lower lobe opacification is present, which could suggest pneumonia in the setting of altered mental status. ACT 112: Positive. There are findings on this examination that require communication between the performing entity and the patient following Patient Test Result Information Act ([place] ACT 112) guidelines. Electronically signed by Sharon Hanna 12-31-2024 7:56 PM ECG Data Attestation: I personally reviewed and interpreted this ECG as follows: Rate (beats per minute): 55 Rhythm: + sinus bradycardia ECG Intervals/blocks: + Normal QRS, + Normal [place] and + Normal QT-c ECG ST segments: + Normal ST segments [facility] Narrative 1931: The patient was evaluated in room A2. A complete history and physical exam was performed Cardiac monitoring: An order was placed for continuous cardiac monitoring. The monitor shows a rate of 60 with sinus rhythm interpreted by mi 2021: Patient came hypoxic when ambulating to the bathroom. Patient placed on supplemental oxygen via nasal cannula which improved the patient's oxygen saturation. 2104: Vital signs stable on supplemental oxygen via nasal cannula. CT of the head shows no ICH. CT of the head was conducted within 6-hour of symptom onset effectively ruling out SAH. Chest x-ray shows left lower lobe pneumonia. Patient will be treated with antibiotics for commune acquired pneumonia azithromycin and Rocephin. [facility] Impression & Plan Hypoxia, Pneumonia Discharge Plan Visit Data Chief Complaint: Weakness Stated Complaint: WEAK,CONFUSED ED Provider: Galdino Gordon Discharge Problem: Hypoxia, Pneumonia Patient Disposition: Admitted As Inpatient Condition: Serious Discharge Instructions Interventions: ED Discharge Assessment Last Done: 12/31/24 22:09 Discharge Problem: Pneumonia Qualifiers: Pneumonia type: due to unspecified organism Laterality: left Lung location: u nspecified part of lung Qualified Code(s): J18.9 - Pneumonia, unspecified organism
[2024-12-31] MEDS: Patient's HEIGHT &/or WEIGHT Needed STA (22:31)
[2024-12-31] MEDS: SODIUM CHLORIDE 0.9% 500 ML IV SCH (22:31)
[2024-12-31] MEDS: ENOXAPARIN INJ 40 MG/0.4 ML SYR SQ SCH (23:36)
[2025-01-01] MEDS: METOPROLOL TARTRATE 25 MG TAB PO SCH (08:12)
[2025-01-01] MEDS: TRIAMTERENE/HCTZ 37.5/25MG TAB PO SCH (08:14)
[2025-01-01] MEDS: LOSARTAN POTASSIUM 50 MG TAB PO SCH (08:14)
[2025-01-01] MEDS: CLOPIDOGREL BISULFATE 75 MG TAB PO SCH (08:14)
--- NOTE | 2025-01-01 11:41 | Electrocardiogram Report ---
Test Reason : Blood Pressure : */* mmHG Vent. Rate : 55 BPM Atrial Rate : 55 BPM P-R Int : 174 ms QRS Dur : 108 ms QT Int : 450 ms P-R-T Axes : -16 -7 84 degrees QTcB Int : 430 ms Sinus bradycardia Inferior infarct (cited on or before 23-Jun-2007) Abnormal ECG When compared with ECG of 09-Dec-2022 15:31, No significant change was found Confirmed by Tomer Lane ([id number]) on 01/01/2025 11:41:10 AM Referred By: REFERRED SELF Confirmed By: Tomer Lane
[2025-01-01 12:06] LABS: Chlamydia pneumoniae PCR Not Detected (NotDetected); Coronavirus 229E PCR Not Detected (NotDetected); Coronavirus CoV-2 (COVID19)PCR Not Detected (NotDetected); Coronavirus HKU1 PCR Not Detected (NotDetected); Coronavirus NL63 PCR Not Detected (NotDetected); Coronavirus OC43PCR Not Detected (NotDetected); Human Metapneumovirus PCR Not Detected (NotDetected); Parainfluenza Virus 1 PCR Not Detected (NotDetected); Parainfluenza Virus 2 PCR Not Detected (NotDetected); Parainfluenza Virus 3 PCR Not Detected (NotDetected); Parainfluenza Virus 4 PCR Not Detected (NotDetected); Respiratory Syncytial VirusPCR Not Detected (NotDetected); Rhinovirus/Enterovirus PCR Not Detected (NotDetected)
[2025-01-01] MEDS: POTASSIUM CHLORIDE CRTAB 20 MEQ TABCR PO STA (15:47)
--- NOTE | 2025-01-01 18:01 | Hospitalist Progress Note ---
Date of Service January 01, 2025 Assessment & Plan (1) Presence of bare metal stent in left circumflex coronary artery: Plan: Continue secondary prophylaxis against CAD utilizing home-scheduled plavix 75mg PO daily and home-scheduled simvastatin 40mg PO qpm. (2) Coronary artery disease: Plan: Continue secondary prophylaxis against CAD utilizing home-scheduled plavix 75mg PO daily and home-scheduled simvastatin 40mg PO qpm. (3) History of subdural hematoma: Plan: Asymptomatic. Continue pharmacologic DVT prophylaxis with lovenox 40mg SQ qpm. (4) Hypertension: Plan: Well-controlled with BP 149/81 (01/01/2025, 3:52pm) on home-scheduled amlodipine 10mg PO qam, home-scheduled losartan 100mg PO qam, home-scheduled metoprolol tartrate 12.5mg PO qam, and home-scheduled triamtere 37.5mg - HCTZ 25mg PO qam. (5) Acute metabolic encephalopathy: Plan: NOT present on 01/01/2025. Patient remains wide awake and alert. Patient is not confused, lethargic, or obtunded. (6) Acute hypoxemic respiratory failure: Plan: RESOLVED. Patient had an admission O2 saturation of 89% on room air (12/31/2024, 8:20pm). Patient has a current O2 saturation of 93% on room air (01/01/2025, 3:52pm). Etiology of acute hypoxic respiratory failure remains unclear in this patient who remains afebrile with no complaints of cough, wheeze, sore throat, rhinorrhea, ageusia, hypogeusia, anosmia, myalgias, N/V/D, shortness of breath, dyspnea on exertion, or pleurisy. In addition, patient's WBC remains normal, as does his procalcitonin level, MRSA nares PCR, and BIOFIRE respiratory pathogen panel. In addition, portable CXR (12/31/2024, 7:43pm): 1. No infiltrate, effusion, cardiomegaly, pulmonary vascular congestion, or pneumothorax (by my review). cf., WBC 7.29, N73 L12 M11 E3, Hb 15.8, MCV 88.2, MCHC 33.7, platelet 234 (12/31/2024, 7:40pm). cf., Procalcitonin #1 0.03 ng/mL (12/31/2024, 7:40pm). cf., Procalcitonin #2 0.02 ng/mL (01/01/2025, 8:52am). cf., MRSA nares PCR negative (01/01/2025, 10:50am). cf., BIOFIRE respiratory pathogen panel negative (01/01/2025, 10:48am). Hence, patient has not been diagnosed with acute bacterial pneumonia as of 01/01/2025. Given the indeterminate D-dimer 500 ug/L (01/01/2025, 3:36pm), I have ordered CTA chest (01/01/2025, 6:17pm) to rule out acute PE and acute mass lesion given patient's past medical history of chronic peripheral monocytosis: cf., M% 12.5% (04/09/2020, 9:49am). cf., M% 11.6% (04/10/2021, 9:27am). cf., M% 11.1% (04/21/2021, 12:34pm). cf., M% 11.6% (12/09/2022, 3:37pm). cf., M% 11.7% (05/08/2024, 11:32am). cf., M% 11.1% (12/31/2024, 7:40pm). Of note, in an elderly patient, the three most common causes of acute/chronic peripheral monocytosis are: 1. Acute leukemia, acute lymphoma, or solid organ malignancy. 2. Acute viral infection. 3. Acute bacterial infection including brucellosis, tularemia, listeriosis, leptospirosis, tuberculosis, and [place] valve endocarditis. Of these three most common causes, I suspect that patient suffers from an acute viral infection, specifically, infection with a summer virus, such as echovirus, which is not tested for on BIOFIRE respiratory pathogen panel. I do not suspect that patient suffers from any of the bacterial infections listed above, and I do not suspect that this patient suffers from acute bacterial pneumonia given the negative procalcitonin levels. Hence, I have opted NOT to continue empiric antibiotics in this patient who has already received ceftriaxone 2g IV x 1 dose (12/31/2024, 8:52pm) and azithromycin 500mg IV x 1 dose (12/31/2024, 9:56pm) in [facility] ER. (7) CAP (community acquired pneumonia): Plan: I suspect that patient suffers from an acute viral pneumonia from a summer virus such as echovirus, and which is NOT treated with antibiotics. (8) Monocytosis: Plan: Lactic acid #1 2.1 mmol/L (01/01/2025, 8:52am). Lactic acid #2 1.4 mmol/L (01/01/2025, 12:59pm). Procalcitonin #1 0.03 ng/mL (12/31/2024, 7:40pm). Procalcitonin #2 0.02 ng/mL (01/01/2025, 8:52am). WBC 7.29, N73 L12 M11 E3, Hb 15.8, MCV 88.2, MCHC 33.7, platelet 234 (12/31/2024, 7:40pm). U/A (12/31/2024, 8:15pm): LE-, nitrite- MRSA nares PCR negative (01/01/2025, 10:50am). BIOFIRE respiratory pathogen panel negative (01/01/2025, 10:48am). D-dimer 500 ug/L (01/01/2025, 3:36pm). (9) Acute hypokalemia: Plan: K 3.4 mmol/L (12/31/2024, 7:40pm). K 3.3 mmol/L (01/01/2025, 8:52am). Etiology of acute hypokalemia is most probably due to patient's home-scheduled HCTZ 25mg PO qam and HCTZ-mediated ashli-uresis, which is not entirely offset by patient's potassium-sparing home-scheduled triamterene 37.5mg PO qam. Hence, I have opted to supplement with KCl 40meq PO x 2 doses (01/01/2025, 3:47pm, 6:00pm) and I will check post-supplement K level in the 01/02/2025 am. Plan 84 years old right-hand dominant male with a PMH of FULL CODE @ home, overweight with BMI 28.0 (height 172.7cm, weight 83.6 kg), HTN, CAD s/p stenting, and subdural hematoma, with no neurologic sequelae, who presented to [facility] ER on 12/31/2024 with altered mental status and generalized weakness. Patient was subsequently admitted to the inpatient hospitalist service @ [facility] on 12/31/2024 with the following diagnoses: Acute Metabolic Encephalopathy Acute Hypoxemic Respiratory Failure Community Acquired Pneumonia - patient coming in with confusion, weakness. On arrival here, oriented x3, but intermittently confused and weak - saturating <88%on room air, requiring 2L of O2 - CXR done and suggestive of left lower lobe opacification - Rocephin + Azithromycin started in the ED and will continue - gentle IV hydration CAD - hx of stenting x2 in 2007 - cont Plavix + statin HTN - cont amlodipine - cont triamterene/HCTZ DVT ppx - subq Lovenox Admission and Anticipated Discharge Date Admission Date: December 31, 2024 Subjective "I felt weak outside my house yesterday (12/31/2024). I didn't have any coughing or wheezing or shortness of breath or chest pain. I don't smoke. It happened all of a sudden. Then I got to the ER yesterday, and they said I had pneumonia in my left lung, so they gave me some antibiotics, and now I feel 40% better than yesterday (12/31/2024). I will be able to go home tomorrow." Review of Systems Constitutional: Negative for antecedent/coincident fevers, chills, diaphoresis, cough, wheeze, sore throat, hemoptysis, chest pains, palpitations, pleurisy, nausea, vomiting, diarrhea, abdominal pain, pelvic pain, hematemesis, hematochezia, melena, hematuria, dysuria, frequency, urgency, headaches, dizziness, lightheadedness, visual changes, hearing changes, weakness, falls, syncope, trauma, travel history, sick contacts, or food/drug ingestions novel or new. All other review of systems are reported as negative by the patient on 01/01/2025. Physical Exam Constitutional: General appearance: Comfortable, coherent, cooperative. Wide awake and alert. Not confused, lethargic, or obtunded. Speaks in complete, fluent, and articulate sentences without pause, interruption, cough, or wheeze. HEENT: Normocephalic; atraumatic. EOMI. PERRL No rhinorrhea. No pharyngeal discharge. Neck: Supple, no stridor, bruit, goiter, JVD, or HJR. Lymph: No lymphadenopathy. Chest: Symmetric rise and fall with respirations. Non-tender to palpation. Lungs: Clear to auscultation and percussion. No audible wheeze, pectoriloquy, increase in tactile fremitus, or flatness/dullness to percussion at the bases. Heart: RRR, S1S2, no S3 or S4. Grade II/ early systolic murmur @ LLSB without radiation to the carotids, axilla, or back, and which remains invariant in regards to the respiratory cycle. Abd: Soft, non-tender, non-distended. No rebound, guarding, Carter's sign, or organomegaly. Bowel sounds auscultated in all 4 quadrants. Ext: No clubbing, cyanosis, or edema. 2+ pedal pulses bilaterally. Skin: No decubitus ulcer, exanthem, or enanthem. Neuro: Alert and oriented in regards to person, place, time, or situation. 5/5 motor strength in all 4 extremities, both proximally and distally. Urology: No melendrez catheter. No urethral discharge. Psych: No suicidal ideation. No homicidal ideation. Results & Data Results & Data Vital Signs (Past 12 Hours) Vital Signs Temp Pulse Pulse Resp BP Pulse Ox O2 Del Method 01/01/25 15:52 36.5 C 55 L 16 149/81 H 93 Room Air 01/01/25 11:35 36.4 C L 55 L 18 158/72 H 92 Nasal Cannula 01/01/25 08:16 Nasal Cannula 01/01/25 07:42 36.4 C L 48 L 18 154/65 H 92 Nasal Cannula O2 Flow Rate 01/01/25 15:52 01/01/25 11:35 2 01/01/25 08:16 01/01/25 07:42 2 Laboratory Results K 3.4 mmol/L (12/31/2024, 7:40pm). K 3.3 mmol/L (01/01/2025, 8:52am). Lactic acid #1 2.1 mmol/L (01/01/2025, 8:52am). Lactic acid #2 1.4 mmol/L (01/01/2025, 12:59pm). Procalcitonin #1 0.03 ng/mL (12/31/2024, 7:40pm). Procalcitonin #2 0.02 ng/mL (01/01/2025, 8:52am). WBC 7.29, N73 L12 M11 E3, Hb 15.8, MCV 88.2, MCHC 33.7, platelet 234 (12/31/2024, 7:40pm). U/A (12/31/2024, 8:15pm): LE-, nitrite- MRSA nares PCR negative (01/01/2025, 10:50am). BIOFIRE respiratory pathogen panel negative (01/01/2025, 10:48am). D-dimer 500 ug/L (01/01/2025, 3:36pm). CK 176 U/L (12/31/2024, 7:40pm). Diagnostic Findings Portable CXR (12/31/2024, 7:43pm): 1. No infiltrate, effusion, cardiomegaly, pulmonary vascular congestion, or pneumothorax (by my review). CT brain without IV contrast (12/31/2024, 7:42pm): 1. Mild cerebral atrophy and patchy periventricular white matter low density consistent with chronic small vessel disease and/or senescent changes. 2. 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 PG Care Time/CCT Total # of Minutes Spent Total Time Spent with Patient: Total time spent is greater than 50% in coordination of care (as documented) at patient's floor/unit and/or counseling patient: Coding Level of Care Code 21836 SUB INP/OBS CARE 2/35MIN Diagnoses Presence of bare metal stent in left circumflex coronary artery Z95.5 Coronary artery disease I25.10 History of subdural hematoma Z86.79 Hypertension I10 Acute metabolic encephalopathy G93.41 Acute hypoxemic respiratory failure J96.01 CAP (community acquired pneumonia) J18.9 Monocytosis D72.821 Acute hypokalemia E87.6
[2025-01-01] MEDS: SIMVASTATIN 40 MG TAB PO SCH (19:48)
[2025-01-01] MEDS ORDERED: cefTRIAXone SODIUM 2,000 MG/50 ML BAG IV SCH (20:00)
[2025-01-01 20:02] LABS: Hematocrit (blood only) 44.3 % (42.0-52.0); Hemoglobin 15.0 g/dl (14.0-18.0); Immature Granulocytes # (auto) 0.03 K/uL (0.01-0.20); Immature Granulocytes % (auto) 0.4 %; Mean Corpuscular Hemoglobin 29.6 pg (25.0-34.0); Mean Corpuscular Volume 87.4 fL (80.0-100.0); Platelet Count 216 K/uL (130-400); RDW Standard Deviation 47.7 fL (36.4-46.3); Red Blood Count 5.07 M/uL (4.70-6.10); White Blood Count 6.93 K/ul (4.8-10.8)
[2025-01-01] MEDS: OPTIRAY 320 125ml IV ONE (20:02)
--- NOTE | 2025-01-01 20:45 | CT Scan Report ---
Exam(s): CTA CHEST IV Amt: 115 cc opti 320 EXAM: CT Angiography Chest With Intravenous Contrast CLINICAL HISTORY: Reason for exam: R/O PE, R/O mass lesion. TECHNIQUE: Axial computed tomographic angiography images of the chest with intravenous contrast. CTDI is 27.13 mGy and DLP is 760.79 mGy-cm. Automated exposure control was utilized for the study. A dose lowering technique was utilized adhering to the principles of ALARA. MIP reconstructed images were created and reviewed. COMPARISON: CT chest on 10/01/2022 FINDINGS: Pulmonary arteries: Unremarkable. No pulmonary embolus identified. Aorta: Atherosclerotic changes of the aorta. No aortic aneurysm or dissection. Lungs: Lower lung atelectasis. No focal consolidation. Pleural space: Unremarkable. No significant effusion. No pneumothorax. Heart: Coronary artery calcifications. Cardiomegaly. No significant pericardial effusion. No evidence of RV dysfunction. Mediastinum: Nonspecific mildly prominent mediastinal and hilar lymph nodes. Bones/joints: Degenerative changes of the spine. No acute fracture. No dislocation. Soft tissues: Unremarkable. Lymph nodes: See above. Liver: Small left hepatic cyst. IMPRESSION: 1. No pulmonary embolus identified. 2. Atherosclerotic changes of the aorta. No aortic aneurysm or dissection. Electronically signed by: Flavio Mercado M.D. 01/01/25 20:45 PM
[2025-01-01] MEDS ORDERED: AZITHROMYCIN 500 MG/255 ML BAG IV SCH (21:00)
[2025-01-02 05:47] LABS: Hematocrit (blood only) 45.3 % (42.0-52.0); Hemoglobin 15.4 g/dl (14.0-18.0); Immature Granulocytes # (auto) 0.01 K/uL (0.01-0.20); Immature Granulocytes % (auto) 0.2 %; Mean Corpuscular Hemoglobin 29.7 pg (25.0-34.0); Mean Corpuscular Volume 87.5 fL (80.0-100.0); Platelet Count 237 K/uL (130-400); RDW Standard Deviation 48.0 fL (36.4-46.3); Red Blood Count 5.18 M/uL (4.70-6.10); White Blood Count 6.42 K/ul (4.8-10.8)
[2025-01-02 06:01] LABS: Anion Gap 5.0 (3-11); Blood Urea Nitrogen 16.0 mg/dl (6-23); Calcium 8.9 mg/dl (8.6-10.3); Carbon Dioxide 30.0 mmol/L (21-32); Chloride 103.0 mmol/L (98-107); Creatinine Clr Calc Pharmacy 55.8 ml/min; Glucose 94.0 mg/dl (70-99(Fasting)); Potassium 3.6 mmol/L (3.5-5.1); Sodium 138.0 mmol/L (136-145)
[2025-01-02 07:37] VITALS: RESP 16; TEMP 97.5; O2SAT 95
--- NOTE | 2025-01-02 08:05 | Discharge Summary ---
Discharge Summary Date of Service January 02, 2025 Principal Dx & Hospital Course #1 = Principal Diagnosis (1) Presence of bare metal stent in left circumflex coronary artery: Patient received secondary prophylaxis against CAD utilizing home-scheduled plavix 75mg PO daily and home-scheduled simvastatin 40mg PO qpm while in [facility]. Patient will continue both home-scheduled medications on hospital discharge home on 01/02/2025. (2) Coronary artery disease: Patient received secondary prophylaxis against CAD utilizing home-scheduled plavix 75mg PO daily and home-scheduled simvastatin 40mg PO qpm while in [facility]. Patient will continue both home-scheduled medications on hospital discharge home on 01/02/2025. (3) History of subdural hematoma: Asymptomatic. Patient received pharmacologic DVT prophylaxis with lovenox 40mg SQ qpm while in [facility]. Patient will not continue this hospital-started medication on hospital discharge home on 01/02/2025. (4) Hypertension: Well-controlled with BP 149/81 (01/01/2025, 3:52pm). Modestly controlled with discharge BP 166/87 (01/02/2025, 7:49am) on home-scheduled amlodipine 10mg PO qam, home-scheduled losartan 100mg PO qam, home-scheduled metoprolol tartrate 12.5mg PO qam, and home-scheduled triamtere 37.5mg - HCTZ 25mg PO qam while in [facility]. Patient will continue all 5 home-scheduled medications on hospital discharge home on 01/02/2025. (5) Acute metabolic encephalopathy: NOT present on 01/01/2025 or on discharge date 01/02/2025. Patient remains wide awake and alert. Patient is not confused, lethargic, or obtunded. (6) Acute hypoxemic respiratory failure: RESOLVED. Patient had an admission O2 saturation of 89% on room air (12/31/2024, 8:20pm). Patient has a current/discharge O2 saturation of 95% on room air (01/02/2025, 7:49m). Etiology of acute hypoxic respiratory failure remains unclear in this patient who remains afebrile with no complaints of cough, wheeze, sore throat, rhinorrhea, ageusia, hypogeusia, anosmia, myalgias, N/V/D, shortness of breath, dyspnea on exertion, or pleurisy. In addition, patient's WBC remains normal, as does his procalcitonin level, MRSA nares PCR, and BIOFIRE respiratory pathogen panel. In addition, portable CXR (12/31/2024, 7:43pm): 1. No infiltrate, effusion, cardiomegaly, pulmonary vascular congestion, or pneumothorax (by my review). cf., WBC 7.29, N73 L12 M11 E3, Hb 15.8, MCV 88.2, MCHC 33.7, platelet 234 (12/31/2024, 7:40pm). cf., Procalcitonin #1 0.03 ng/mL (12/31/2024, 7:40pm). cf., Procalcitonin #2 0.02 ng/mL (01/01/2025, 8:52am). cf., Procalcitonin #3 0.03 ng/mL (01/02/2025, 5:26am). cf., MRSA nares PCR negative (01/01/2025, 10:50am). cf., BIOFIRE respiratory pathogen panel negative (01/01/2025, 10:48am). Hence, patient has not been diagnosed with acute bacterial pneumonia as of 01/01/2025 and as of discharge date 01/02/2025. Given the indeterminate D-dimer 500 ug/L (01/01/2025, 3:36pm), I have ordered CTA chest (01/01/2025, 6:17pm) to rule out acute PE and acute mass lesion given patient's past medical history of chronic peripheral monocytosis: cf., M% 12.5% (04/09/2020, 9:49am). cf., M% 11.6% (04/10/2021, 9:27am). cf., M% 11.1% (04/21/2021, 12:34pm). cf., M% 11.6% (12/09/2022, 3:37pm). cf., M% 11.7% (05/08/2024, 11:32am). cf., M% 11.1% (12/31/2024, 7:40pm). cf., M% 12.8% (01/01/2025, 7:36pm). cf., M% 12.1% (01/02/2025, 5:26am). Of note, in an elderly patient, the three most common causes of acute/chronic peripheral monocytosis are: 1. Acute leukemia, acute lymphoma, or solid organ malignancy. 2. Acute viral infection. 3. Acute bacterial infection including brucellosis, tularemia, listeriosis, leptospirosis, tuberculosis, and [place] valve endocarditis. Of these three most common causes, I suspect that patient suffers from an acute viral infection, specifically, infection with a summer virus, such as echovirus, which is not tested for on [facility] respiratory pathogen panel. I do not suspect that patient suffers from any of the bacterial infections listed above, and I do not suspect that this patient suffers from acute bacterial pneumonia given the negative procalcitonin levels. Hence, I opted NOT to continue empiric antibiotics in this patient who has already received ceftriaxone 2g IV x 1 dose (12/31/2024, 8:52pm) and azithromycin 500mg IV x 1 dose (12/31/2024, 9:56pm) in [facility] ER. Of final note, CTA chest (01/01/2025, 6:17pm) was negative for acute PE and negative for mass lesion(s). (7) CAP (community acquired pneumonia): I suspect that patient suffers from an acute viral syndrome/infection from a summer virus such as echovirus, and which is NOT treated with antibiotics. (8) Monocytosis: See Bullet #6 above for details on chronic peripheral monocytosis. (9) Acute hypokalemia: cf., K 3.4 mmol/L (12/31/2024, 7:40pm). cf., K 3.3 mmol/L (01/01/2025, 8:52am). Etiology of acute hypokalemia is most probably due to patient's home-scheduled HCTZ 25mg PO qam and HCTZ-mediated ashli-uresis, which is not entirely offset by patient's potassium-sparing home-scheduled triamterene 37.5mg PO qam. Hence, I opted to supplement with KCl 40meq PO x 2 doses (01/01/2025, 3:47pm, 6:00pm) and acute hypokalemia RESOLVED with post-supplement K 3.6 mmol/L (01/02/2025, 5:26am). Patient was subsequently discharged back to his home on 01/02/2025 with his home-scheduled HCTZ 25mg - triamterene 37.5mg PO qam and his home-scheduled KCl 20meq PO qam. Plan 84 years old right-hand dominant male with a PMH of FULL CODE @ home, overweight with BMI 28.0 (height 172.7cm, weight 83.6 kg), HTN, CAD s/p stenting, and subdural hematoma, with no neurologic sequelae, who presented to [facility] ER on 12/31/2024 with altered mental status and generalized weakness. Patient was subsequently admitted to the inpatient hospitalist service @ [facility] on 12/31/2024 with the following diagnoses: Acute Metabolic Encephalopathy Acute Hypoxemic Respiratory Failure Community Acquired Pneumonia - patient coming in with confusion, weakness. On arrival here, oriented x3, but intermittently confused and weak - saturating <88%on room air, requiring 2L of O2 - CXR done and suggestive of left lower lobe opacification - Rocephin + Azithromycin started in the ED and will continue - gentle IV hydration CAD - hx of stenting x2 in 2007 - cont Plavix + statin HTN - cont amlodipine - cont triamterene/HCTZ DVT ppx - subq Lovenox Admission HPI Per Admitting Provider This is an 84 year old male with a PMH of CAD s/p stenting, HTN, HLD, hx of subdural hematoma - coming in with altered mental status and weakness. This began suddenly prior to arrival; states he was just not feeling right. On arrival here, he is not confused per orientation questions, but just felt off and weak. Head CT was done in the ED and negative for acute process. CXR was done and suggestive of left lower lobe opacification. In the ER, patient requiring 2L of O2 via NC due to hypoxemia. Patient was started on Rocephin and Azithromycin in the ER. Discharge Exam Constitutional General appearance: Comfortable, coherent, cooperative. Wide awake and alert. Not confused, lethargic, or obtunded. Speaks in complete, fluent, and articulate sentences without pause, interruption, cough, or wheeze. HEENT: Normocephalic; atraumatic. EOMI. PERRL No rhinorrhea. No pharyngeal discharge. Neck: Supple, no stridor, bruit, goiter, JVD, or HJR. Lymph: No lymphadenopathy. Chest: Symmetric rise and fall with respirations. Non-tender to palpation. Lungs: Clear to auscultation and percussion. No audible wheeze, pectoriloquy, increase in tactile fremitus, or flatness/dullness to percussion at the bases. Heart: RRR, S1S2, no S3 or S4. Grade II/ early systolic murmur @ LLSB without radiation to the carotids, axilla, or back, and which remains invariant in regards to the respiratory cycle. Abd: Soft, non-tender, non-distended. No rebound, guarding, Carter's sign, or organomegaly. Bowel sounds auscultated in all 4 quadrants. Ext: No clubbing, cyanosis, or edema. 2+ pedal pulses bilaterally. Skin: No decubitus ulcer, exanthem, or enanthem. Neuro: Alert and oriented in regards to person, place, time, or situation. 5/5 motor strength in all 4 extremities, both proximally and distally. Urology: No melendrez catheter. No urethral discharge. Psych: No suicidal ideation. No homicidal ideation. Discharge Plan Discharge Items Patient Disposition: Home - Self-Care Reason For Visit: CONFUSION Discharge Diagnosis: 1. Acute viral syndrome. Condition on Discharge: Fair Activity: Resume your previous activity Lifting: Gradually increase as tolerated Bathing: No limitations Sexual Activity: When tolerated Exercise/Sports: As tolerated Driving/Machine Use: No limitations Weightbearing: Full weightbearing Non-emergency contact: Primary Care Provider Call non-emergency contact if: you have any medication questions Follow-up/Referrals: Yani Flores DO [Primary Care Provider] - Diet: Heart Healthy Addtl Attending Provider Instructions: See your PCP Dr. Yani Flores within 5-7 days of hospital discharge. Pending Studies at Discharge: No Stand-Alone Forms: [employer], Smoking Cessation Medications and DC Order Prescriptions: Continued albuterol sulfate 1.25 mg/3 mL solution for nebulization 1.25 mg inhalation QID PRN (Reason: shortness of breath or wheezing) Qty: 75 1RF albuterol sulfate 90 mcg/actuation HFA aerosol inhaler 2 puff inhalation Q6H PRN (Reason: shortness of breath or wheezing) Qty: 8.5 2RF fluticasone propionate 50 mcg/actuation spray,suspension 2 spray intranasal DAILY PRN (Reason: nasal congestion) Qty: 16 3RF Rx Instructions: administer into each nostril clopidogrel 75 mg tablet 75 mg PO DAILY Qty: 90 3RF Trelegy Ellipta 200-62.5-25 mcg blister with device 1 inh inhalation DAILY PRN (Reason: cough and wheezing) Qty: 60 1RF Rx Instructions: given samples for 42 day supply sildenafil 100 mg tablet 100 mg PO DAILY PRN (Reason: sexual activity) Qty: 10 6RF Rx Instructions: administer 30 minutes to 4 hours before activity amlodipine 10 mg tablet 10 mg PO QAM Qty: 90 1RF metoprolol tartrate 25 mg tablet 12.5 mg PO QAM Qty: 45 1RF triamterene-hydrochlorothiazid 37.5-25 mg capsule 1 cap PO QAM Qty: 90 1RF losartan 100 mg tablet 100 mg PO QAM Qty: 90 1RF potassium chloride 20 mEq tablet extended release 20 meq PO QAM Qty: 90 2RF (DME) compressor, for nebulizer Device See Rx Instructions .Route Qty: 1 0RF Rx Instructions: As directed acetaminophen [Tylenol Extra Strength] 500 mg tablet 500 mg PO DIRECTED PRN (Reason: Pain) fluorouracil 5 % cream 1 applic topical DIRECTED PRN (Reason: Skin Irritation) simvastatin 40 mg tablet 40 mg PO QPM Qty: 90 3RF Discharge Orders: Discharge Order (Routine); Ordered 01/02/25 Ordered By: Henrry Varela Admission Data Admit Date/Time: 12/31/24 21:30 Attending Provider: Henrry Varela Admit Provider: Payal Gallardo Primary Care Provider: Yani Flores Other Providers: Payal Gallardo Hospital Stay Data Consultations 12/31/24 21:06 ED Decision to Admit Stat Diagnostic Imagining Performed 12/31/24 19:42 CT head/brain wo con Stat 01/01/25 18:17 CT angio chest PE protocol Stat Pending Results Patient Have Any Pending Studies at Discharge: No Discharge Instructions Given to Patient (Per Discharging Provider) See your PCP Dr. Yani Flores within 5-7 days of hospital discharge. Total Time Total Time Spent Total Time Spent (In Minutes): 35 minutes. Of this time period, 19 minutes were spent in coordinating patient's discharge. Coding Level of Care Code 42654 INP/OBS DISCH >30 MIN Diagnoses Presence of bare metal stent in left circumflex coronary artery Z95.5 Coronary artery disease I25.10 History of subdural hematoma Z86.79 Hypertension I10 Acute metabolic encephalopathy G93.41 Acute hypoxemic respiratory failure J96.01 CAP (community acquired pneumonia) J18.9 Monocytosis D72.821 Acute hypokalemia E87.6
[2025-01-02 08:23] VITALS: BP 154/90; PULSE 63
[2025-01-02] MEDS ORDERED: POTASSIUM CHLORIDE CRTAB 20 MEQ TABCR PO SCH (18:00)
== END 2025-01-02 11:33 | disposition home or self-care (01) | DRG 193 ==
LOC: ED 19:22 → SUATTDRO 21:30 → 3N 21:30